=== PATIENT | female | born 1940 | race Caucasian/White ===

== ENCOUNTER 2020-04-21 14:06 | Inpatient (IN) ==
[2020-04-21 15:41] LABS: Hematocrit 38.3 % (37.0-47.0); Hemoglobin 12.2 gm/dL (12.5-16.0); Mean Cell Volume 93.2 fl (78-100); Mean Corpuscular Hemoglobin 29.7 pg (27-31); Mean Corpuscular Hgb Conc 31.9 g/dl (32-36); Mean Platelet Volume 9.4 fl (8-12.5); Platelet Count 162 K/mm3 (150-450); Red Blood Count 4.11 M/mm3 (4.2-5.4); Red Cell Distribution Width 13.9 % (11.5-14.0); White Blood Count 28.2 K/mm3 (4.0-10.5)
[2020-04-21 15:42] LABS: Total Cells Counted 100
[2020-04-21 15:52] LABS: Albumin * 3.4 gm/dl (3.4-5.0); Anion Gap 9.6 mmol/L (6.8-13.8); BUN/Creatinine Ratio 16.8 (9.0-21.6); Bilirubin, Total 0.6 mg/dL (0.0-1.1); Ca. Corrected For Albumin 9.3 mg/dL (8.4-10.2); Calcium * 9.1 mg/dL (7.9-10.9); Carbon Dioxide 29.5 mmol/L (24-32.6); Potassium 4.1 mmol/L (3.4-4.6); Total Protein 7.1 gm/dL (6.2-8.2)
--- NOTE | 2020-04-21 16:02 | ERNOTE ---
Date of Service: 04/21/20 Time Seen by Provider: 04/21/20 14:30 Stated Complaint: sob, fever Presenting Symptoms:: fever Source: patient, RN/MD Exam Limitations: dementia Immunizations: IMMUNIZATION HX Immunizations Up to Date Yes History of Influenza Vaccine Yes Hx Pneumococcal Vaccination Yes Allergies/Adverse Reactions: Allergies azithromycin Adverse Reaction (Verified 04/21/20 14:16) Nausea Home Medications: HOME MEDICATIONS Calcium Carb, Citrate/Vit D3 [Calcium + D3 ER Tablet] 1 ea PO DAILY 04/21/20 [Last Taken Unknown] DULoxetine HCL [Cymbalta] 30 mg PO HS 04/21/20 [Last Taken Unknown] Donepezil HCl [Aricept] 10 mg PO DAILY 04/21/20 [Last Taken Unknown] Duloxetine HCl 60 mg PO DAILY 04/21/20 [Last Taken Unknown] Furosemide [Lasix] 20 mg PO DAILY 04/21/20 [Last Taken Unknown] Gabapentin 400 mg PO TID 04/21/20 [Last Taken Unknown] Levothyroxine Sodium [Levoxyl] 25 mcg PO DAILY 04/21/20 [Last Taken Unknown] Meloxicam [Mobic] 15 mg PO DAILY 04/21/20 [Last Taken Unknown] Memantine HCl [Namenda] 10 mg PO BID 04/21/20 [Last Taken Unknown] Omeprazole 40 mg PO DAILY 04/21/20 [Last Taken Unknown] amLODIPine BESYLATE [Norvasc] 5 mg PO DAILY 04/21/20 [Last Taken Unknown] traZODone HCL [Desyrel] 50 mg PO HS 04/21/20 [Last Taken Unknown] - History of Present Ilness Narrative: pt comes in from home with nurse that does 24 hr care with . Staff states pt was exposed to covid on 04-12, and this week started feeling weak, got covid test yesterday and in middle of night developed 102 F temp. Pt taken 1 G tylenol at 1130 today. Pt very tired, and falling asleep while sitting, which is abnormal. This patient is an 79-year-old female who is here with a cough and fever. The patient has dementia. She has no complaints. The patient is here with a nurse that cares for her . She reportedly has had a cough for a few days and then developed a fever overnight. She has been exposed to Covid. They said that her oxygen saturation was low earlier today. The patient denies chest pain or shortness of breath. Review of Systems - Narrative Narrative: The review of systems is limited due to her dementia. The patient denies any problems. Medical History (Last Reviewed 04/22/20 @ 00:06 by Imer Mckoy MD) Arthropathy of left shoulder Dementia Hypothyroid Incontinence of urine Surgical History: Surgical History (Last Reviewed 04/22/20 @ 00:06 by Imer Mckoy MD) H/O: hysterectomy History of appendectomy History of hip replacement Social History: (Last Reviewed 04/22/20 @ 00:06 by Imer Mckoy MD) Tobacco: Smoking Status: Never smoker Alcohol: alcohol intake: former Substance Use: substance use type: does not use Physical Exam - Physical Exam General Appearance: Present: wd/wn, alert, no apparent distress, other - She is happy and interactive. Head Exam: Present: normal inspection, no evidence of injury Eye Exam: Normal inspection: bilateral Ears, Nose, Throat: Present: normal ENT inspection Neck: Present: normal inspection, supple Respiratory: Present: no respiratory distress, decreased breath sounds, other - There are some questionable crackles at the bases. Cardiovascular/Chest: Present: regular rate, rhythm, no murmur Gastrointestinal/Abdominal: Present: normal bowel sounds, nontender, nondistended, soft, no organomegaly Back Exam: Present: normal inspection Extremity Exam: Present: normal inspection Neurological Exam: Present: alert, normal mood/affect, no motor/sensory deficits - No gross lateralizing deficit. Skin Exam: Present: normal color, warm/dry Progress - Date and Time Seen: Date and Time: 04/22/20 00:10 The patient was not hypoxic here. She was in no respiratory distress. The chest x-ray findings are concerning for covid 19. Her WBC is quite elevated, not consistent with a viral infection. I spoke with Dr. Melchor, who agrees to admit the patient for pneumonia. - Results and Orders Patient's Lab Results:: I have reviewed the patient's lab results. Results and Orders: Laboratory Tests 04/21/20 04/21/20 04/21/20 15:32 15:32 15:32 WBC 28.2 H RBC 4.11 L Hgb 12.2 L Hct 38.3 MCV 93.2 MCH 29.7 MCHC 31.9 L RDW 13.9 Plt Count 162 MPV 9.4 Neutrophils % (Manual) 75 Band Neuts % (Manual) 15 H Lymphocytes % (Manual) 4 L Monocytes % (Manual) 3 Eosinophils % (Manual) 1 Neutrophils # (Manual) 21.2 H Lymphocytes # (Manual) 1.1 L Monocytes # (Manual) 0.8 Eosinophils # (Manual) 0.3 Atypic/Reactive Lymphs 2 Toxic Granulation 1+ Toxic Vacuolation 1+ Platelet Estimate Normal Poikilocytosis Trace ESR D-Dimer Sodium 138 Plasma Sodium 138 Potassium 4.1 Chloride 103 Carbon Dioxide 29.5 Anion Gap 9.6 BUN 26 H Creatinine 1.55 H Est GFR (Non-Af Amer) 33 L BUN/Creatinine Ratio 16.8 Random Glucose 118 H Lactic Acid, Venous Calcium 9.1 Calcium Adj for Albumin 9.3 Total Bilirubin 0.6 AST 16 ALT 18 L Alkaline Phosphatase 48 L C-Reactive Prot, Quant Total Protein 7.1 Albumin 3.4 Procalcitonin 4.47 H SARS-CoV-2 (PCR) 04/21/20 04/21/20 04/21/20 15:32 15:32 15:32 WBC RBC Hgb Hct MCV MCH MCHC RDW Plt Count MPV Neutrophils % (Manual) Band Neuts % (Manual) Lymphocytes % (Manual) Monocytes % (Manual) Eosinophils % (Manual) Neutrophils # (Manual) Lymphocytes # (Manual) Monocytes # (Manual) Eosinophils # (Manual) Atypic/Reactive Lymphs Toxic Granulation Toxic Vacuolation Platelet Estimate Poikilocytosis ESR 35 H D-Dimer Sodium Plasma Sodium Potassium Chloride Carbon Dioxide Anion Gap BUN Creatinine Est GFR (Non-Af Amer) BUN/Creatinine Ratio Random Glucose Lactic Acid, Venous 1.5 Calcium Calcium Adj for Albumin Total Bilirubin AST ALT Alkaline Phosphatase C-Reactive Prot, Quant 14.9 H Total Protein Albumin Procalcitonin SARS-CoV-2 (PCR) 04/21/20 04/21/20 15:32 18:03 WBC RBC Hgb Hct MCV MCH MCHC RDW Plt Count MPV Neutrophils % (Manual) Band Neuts % (Manual) Lymphocytes % (Manual) Monocytes % (Manual) Eosinophils % (Manual) Neutrophils # (Manual) Lymphocytes # (Manual) Monocytes # (Manual) Eosinophils # (Manual) Atypic/Reactive Lymphs Toxic Granulation Toxic Vacuolation Platelet Estimate Poikilocytosis ESR D-Dimer 0.64 H Sodium Plasma Sodium Potassium Chloride Carbon Dioxide Anion Gap BUN Creatinine Est GFR (Non-Af Amer) BUN/Creatinine Ratio Random Glucose Lactic Acid, Venous Calcium Calcium Adj for Albumin Total Bilirubin AST ALT Alkaline Phosphatase C-Reactive Prot, Quant Total Protein Albumin Procalcitonin SARS-CoV-2 (PCR) Not detected - Vital Signs Patient's Vital Signs:: I have reviewed the patient's vital signs. Vital Signs: Vital Signs 04/21/20 14:06 Temperature 36.6 C Pulse Rate 78 Respiratory Rate 18 Blood Pressure 113/57 O2 Sat by Pulse Oximetry 91 L - X-Ray X-Ray #1 X-Ray: chest Interpretation: Reviewed by me X-ray Comments: Chest PA & Lateral *~ Exam Date: 04/21/2020 16:06 Ordering Physician: Deisy Gamboa NP History: Shortness of breath and fatigue. Possible Covid exposure. Technique: PA and lateral views of the chest are evaluated without comparison Findings: Focal airspace consolidation the right lower lobe and to a lesser degree in the left lower lobe. No pleural effusion or pneumothorax. Cardiac silhouette and pulmonary vasculature are normal. The osseous structures demonstrate decreased bony mineralization and degenerative changes of the spine and shoulders. IMPRESSION: MULTIFOCAL PNEUMONIA.. Electronically signed by Sanjeev Nugent D.O.. - Progress/Reassessment Chief Complaint: Upper Respiratory Symptoms Departure Clinical Impression: Pneumonia, Leukocytosis, Dementia - Departure Disposition: Short Term Hospital Inpatient Condition: Fair
[2020-04-21 16:23] LABS: Atypical (Reactive) Lymph 2 % (0-2); Band 15 % (0-2.0); Eosinophil 1 % (0-3); Lymphocyte 4 % (20-51); Monocyte 3 % (0-9); Neutrophil 75 % (42-75); Neutrophil # 21.2 K/mm3 (1.3-6.0)
[2020-04-21 16:24] LABS: Platelet Estimate Normal (NORMAL); Toxic Granulation 1+
[2020-04-21 16:25] LABS: Poikilocytosis Trace
[2020-04-21] MEDS ORDERED: AZITHROMYCIN 250 MG TABLET PO ONE (17:49)
[2020-04-21] MEDS ORDERED: cefTRIAXone SODIUM 1,000 MG/100 ML BAG IV ONE (17:49)
[2020-04-21] MEDS: LORazepam 2 MG/ML DISP.SYRIN IV PRN (18:33)
[2020-04-22] MEDS: LORazepam 2 MG/ML DISP.SYRIN IV PRN (03:07)
--- NOTE | 2020-04-22 08:28 | HP ---
Chief Complaint - Chief Complaint Date of Service: 04/21/20 Time of Service: 19:10 Chief Complaint: Cough, weakness, fever History of Present Illness: pt comes in from home with nurse that does 24 hr care with . Staff states pt was exposed to covid on 04-12, and this week started feeling weak, got covid test yesterday and in middle of night developed 102 F temp. Pt taken 1 G tylenol at 1130 today. Pt very tired, and falling asleep while sitting, which is abnormal. This patient is an 79-year-old female who is here with a cough and fever. The patient has dementia. She has no complaints. The patient is here with a nurse that cares for her . She reportedly has had a cough for a few days and then developed a fever overnight. She has been exposed to Covid. They said that her oxygen saturation was low earlier today. The patient denies chest pain or shortness of breath. Medical History (Last Reviewed 04/22/20 @ 00:06 by Imer Mckoy MD) Arthropathy of left shoulder Dementia Hypothyroid Incontinence of urine Surgical History: Surgical History (Last Reviewed 04/22/20 @ 00:06 by Imer Mckoy MD) H/O: hysterectomy History of appendectomy History of hip replacement Social History: (Last Reviewed 04/22/20 @ 00:06 by Imer Mckoy MD) Tobacco: Smoking Status: Never smoker Alcohol: alcohol intake: former Substance Use: substance use type: does not use Review Of Systems (GEN) - Review of Systems Generalized/Overall Review: Present: Weakness, Chills, Fever EENTM: Present: No Symptoms Reported Respiratory: Present: Cough, Shortness of Breath Cardiac: Present: No Symptoms Reported Abdominal: Present: No Symptoms Reported Genitourinary: Present: No Symptoms Reported Musculoskeletal: Present: No Symptoms Reported Neurological: Present: Weakness Skin: Present: No Symptoms Reported Endocrine: Present: No Symptoms Reported Immunizations: IMMUNIZATION HX Immunizations Up to Date Yes History of Influenza Vaccine Yes Hx Pneumococcal Vaccination Yes Allergies/Adverse Reactions: Allergies Allergy/AdvReac Type Severity Reaction Status Date / Time azithromycin AdvReac Nausea Verified 04/21/20 14:16 Home Medications: HOME MEDICATIONS Calcium Carb, Citrate/Vit D3 [Calcium + D3 ER Tablet] 1 ea PO DAILY 04/21/20 [Last Taken Unknown] DULoxetine HCL [Cymbalta] 30 mg PO HS 04/21/20 [Last Taken Unknown] Donepezil HCl [Aricept] 10 mg PO DAILY 04/21/20 [Last Taken Unknown] Duloxetine HCl 60 mg PO DAILY 04/21/20 [Last Taken Unknown] Furosemide [Lasix] 20 mg PO DAILY 04/21/20 [Last Taken Unknown] Gabapentin 400 mg PO TID 04/21/20 [Last Taken Unknown] Levothyroxine Sodium [Levoxyl] 25 mcg PO DAILY 04/21/20 [Last Taken Unknown] Meloxicam [Mobic] 15 mg PO DAILY 04/21/20 [Last Taken Unknown] Memantine HCl [Namenda] 10 mg PO BID 04/21/20 [Last Taken Unknown] Omeprazole 40 mg PO DAILY 04/21/20 [Last Taken Unknown] amLODIPine BESYLATE [Norvasc] 5 mg PO DAILY 04/21/20 [Last Taken Unknown] traZODone HCL [Desyrel] 50 mg PO HS 04/21/20 [Last Taken Unknown] Exam - Exam Vital Signs: Vital Signs - Last Taken Temp 37.1 C 04/22/20 07:01 Pulse 87 04/22/20 07:01 Resp 19 04/22/20 07:01 BP 157/70 H 04/22/20 07:01 Pulse Ox 92 L 04/22/20 02:10 Constitutional: Present: Well developed, Well nourished, Mild distress, Elderly, Obese ENT Exam: Present: normal ENT inspection, hearing grossly normal, pharynx normal, TMs normal Eye Exam: bilateral eye: normal inspection, PERRL, EOMI Neck: Present: non-tender, supple, limited range of motion Back Exam: Present: normal inspection, no CVA tenderness, no vertebral tenderness Respiratory: Present: decreased breath sounds, rhonchi, wheezing Cardiovascular/Chest: Present: normal peripheral pulses, no chest tenderness, no edema, no gallop, no JVD, no murmur, no rub, tachycardia Peripheral Pulses: carotid (R): 2+, carotid (L): 2+, radial (R): 2+, radial (L): 2+ Abdomen: Present: Normal bowel sounds, soft, nontender, nondistended, no rebound tenderness, no hepatospenomegaly, no masses, obese /Rectal: Present: Exam deferred Extremity: Present: normal range of motion, non-tender, normal inspection, no pedal edema, no calf tenderness, normal capillary refill Skin Exam: Present: normal color, warm/dry, no cyanosis Lymphatic: Present: no adenopathy Neurologic: Present: motor weakness Appearance: Present: appropriate appearance, neat, impaired insight, impaired recent memory, impaired remote memory Eye contact: Present: other - Unable to cooperate due to advanced dementia Thoughts: Present: incoherent Diagnostic Studies: Abnormal Lab Results 04/21/20 04/21/20 04/21/20 Range/Units 15:32 15:32 15:32 WBC 28.2 H (4.0-10.5) K/mm3 RBC 4.11 L (4.2-5.4) M/mm3 Hgb 12.2 L (12.5-16.0) gm/dL MCHC 31.9 L (32-36) g/dl Band Neuts % (Manual) 15 H (0-2.0) % Lymphocytes % (Manual) 4 L (20-51) % Neutrophils # (Manual) 21.2 H (1.3-6.0) K/mm3 Lymphocytes # (Manual) 1.1 L (1.5-3.5) k/mm3 ESR (0-15) mm/hr D-Dimer (0.19-0.49) ug/mL BUN 26 H (3-23) mg/dL Creatinine 1.55 H (0.4-1.4) mg/dL Est GFR (Non-Af Amer) 33 L (60-130) mL/min Random Glucose 118 H (70-110) mg/dL ALT 18 L (19-67) U/L Alkaline Phosphatase 48 L (50-170) U/L C-Reactive Prot, Quant (0.0-0.9) mg/dL Procalcitonin 4.47 H (0.05-0.50) ng/mL 04/21/20 04/21/20 04/21/20 Range/Units 15:32 15:32 15:32 WBC (4.0-10.5) K/mm3 RBC (4.2-5.4) M/mm3 Hgb (12.5-16.0) gm/dL MCHC (32-36) g/dl Band Neuts % (Manual) (0-2.0) % Lymphocytes % (Manual) (20-51) % Neutrophils # (Manual) (1.3-6.0) K/mm3 Lymphocytes # (Manual) (1.5-3.5) k/mm3 ESR 35 H (0-15) mm/hr D-Dimer 0.64 H (0.19-0.49) ug/mL BUN (3-23) mg/dL Creatinine (0.4-1.4) mg/dL Est GFR (Non-Af Amer) (60-130) mL/min Random Glucose (70-110) mg/dL ALT (19-67) U/L Alkaline Phosphatase (50-170) U/L C-Reactive Prot, Quant 14.9 H (0.0-0.9) mg/dL Procalcitonin (0.05-0.50) ng/mL Laboratory Results WBC 28.2 K/mm3 (4.0-10.5) H 04/21/20 15:32 RBC 4.11 M/mm3 (4.2-5.4) L 04/21/20 15:32 Hgb 12.2 gm/dL (12.5-16.0) L 04/21/20 15:32 Hct 38.3 % (37.0-47.0) 04/21/20 15:32 MCV 93.2 fl (78-100) 04/21/20 15:32 MCH 29.7 pg (27-31) 04/21/20 15:32 MCHC 31.9 g/dl (32-36) L 04/21/20 15:32 RDW 13.9 % (11.5-14.0) 04/21/20 15:32 Plt Count 162 K/mm3 (150-450) 04/21/20 15:32 MPV 9.4 fl (8-12.5) 04/21/20 15:32 Neutrophils % (Manual) 75 % (42-75) 04/21/20 15:32 Band Neuts % (Manual) 15 % (0-2.0) H 04/21/20 15:32 Lymphocytes % (Manual) 4 % (20-51) L 04/21/20 15:32 Monocytes % (Manual) 3 % (0-9) 04/21/20 15:32 Eosinophils % (Manual) 1 % (0-3) 04/21/20 15:32 Neutrophils # (Manual) 21.2 K/mm3 (1.3-6.0) H 04/21/20 15:32 Lymphocytes # (Manual) 1.1 k/mm3 (1.5-3.5) L 04/21/20 15:32 Monocytes # (Manual) 0.8 k/mm3 (0.0-1.0) 04/21/20 15:32 Eosinophils # (Manual) 0.3 k/mm3 (0.0-0.7) 04/21/20 15:32 Atypic/Reactive Lymphs 2 % (0-2) 04/21/20 15:32 Toxic Granulation 1+ 04/21/20 15:32 Toxic Vacuolation 1+ 04/21/20 15:32 Platelet Estimate Normal (NORMAL) 04/21/20 15:32 Poikilocytosis Trace 04/21/20 15:32 ESR 35 mm/hr (0-15) H 04/21/20 15:32 D-Dimer 0.64 ug/mL (0.19-0.49) H 04/21/20 15:32 Sodium 138 mmol/L (132-142) 04/21/20 15:32 Plasma Sodium 138 mmol/L (130-142) 04/21/20 15:32 Potassium 4.1 mmol/L (3.4-4.6) 04/21/20 15:32 Chloride 103 mmol/L (97-106) 04/21/20 15:32 Carbon Dioxide 29.5 mmol/L (24-32.6) 04/21/20 15:32 Anion Gap 9.6 mmol/L (6.8-13.8) 04/21/20 15:32 BUN 26 mg/dL (3-23) H 04/21/20 15:32 Creatinine 1.55 mg/dL (0.4-1.4) H 04/21/20 15:32 Est GFR (Non-Af Amer) 33 mL/min (60-130) L 04/21/20 15:32 BUN/Creatinine Ratio 16.8 (9.0-21.6) 04/21/20 15:32 Random Glucose 118 mg/dL (70-110) H 04/21/20 15:32 Lactic Acid, Venous 1.5 mmol/L (0.4-2.0) 04/21/20 15:32 Calcium 9.1 mg/dL (7.9-10.9) 04/21/20 15:32 Calcium Adj for Albumin 9.3 mg/dL (8.4-10.2) 04/21/20 15:32 Total Bilirubin 0.6 mg/dL (0.0-1.1) 04/21/20 15:32 AST 16 U/L (0-48) 04/21/20 15:32 ALT 18 U/L (19-67) L 04/21/20 15:32 Alkaline Phosphatase 48 U/L (50-170) L 04/21/20 15:32 C-Reactive Prot, Quant 14.9 mg/dL (0.0-0.9) H 04/21/20 15:32 Total Protein 7.1 gm/dL (6.2-8.2) 04/21/20 15:32 Albumin 3.4 gm/dl (3.4-5.0) 04/21/20 15:32 Procalcitonin 4.47 ng/mL (0.05-0.50) H 04/21/20 15:32 SARS-CoV-2 (PCR) Not detected (NotDetected) 04/21/20 18:03 Assessment/Plan - Narrative Narrative: Debbie had a marked leukocytosis on admission of 22,000. Chest x-ray is consistent with pneumonia and she is Covid negative. She will be treated with antibiotics and respiratory therapy. I will monitor her lab daily. Blood cultures are pending. I reconciled her medicines and continued some of them. - Assessment/Plan (1) Pneumonia Problem: Acute Qualifiers: Pneumonia type: due to unspecified organism Laterality: bilateral Lung location: upper lobe of lung Qualified Code(s): J18.9 - Pneumonia, unspecified organism (2) Leukocytosis Problem: Acute Qualifiers: Leukocytosis type: bandemia Qualified Code(s): D72.825 - Bandemia (3) Dementia Problem: Chronic Qualifiers: Dementia type: Alzheimer's disease Alzheimer's disease onset: late-onset Dementia behavioral disturbance: without behavioral disturbance Qualified Code(s): G30.1 - Alzheimer's disease with late onset; F02.80 - Dementia in other diseases classified elsewhere without behavioral disturbance
[2020-04-22] MEDS ORDERED: ACETAMINOPHEN 500 MG TABLET PO PRN (08:41)
--- NOTE | 2020-04-22 08:41 | PN ---
Subjective - Date and Time Seen Date: 04/22/20 Time: 07:20 Subjective Narrative: Debbie has rested fairly well through the night. She is receiving IV antibiotics and I will start respiratory therapy this morning. She is very demented and cannot follow commands. Vital signs have been stable and she has not been in Any respiratory distress. She has a 28,000 white count with 15% bandemia. The D-dimer is barely elevated at 0.67 and her sed rate is 35. CRP is 14.7 and the pro-Gregor is elevated at 4.7. Objective - Review of Systems Generalized/Overall Review: Reports: No Symptoms Reported, Weakness EENTM: Reports: No Symptoms Reported Respiratory: Reports: Cough, Shortness of Breath Cardiac: Reports: No Symptoms Reported Abdominal: Reports: No Symptoms Reported Genitourinary Symptoms: Reports: Incontinent Musculoskeletal Complaints: Reports: No Symptoms Reported Neurological: Reports: Weakness Endocrine: Reports: No Symptoms Reported - Vitals Vitals: Last Vital Signs Temp 37.1 C 04/22/20 07:01 Pulse 87 04/22/20 07:01 Resp 19 04/22/20 07:01 BP 157/70 H 04/22/20 07:01 Pulse Ox 92 L 04/22/20 02:10 - Abnormal Lab Findings Abnormal Lab Findings: Abnormal Lab Results 04/21/20 04/21/20 04/21/20 Range/Units 15:32 15:32 15:32 WBC 28.2 H (4.0-10.5) K/mm3 RBC 4.11 L (4.2-5.4) M/mm3 Hgb 12.2 L (12.5-16.0) gm/dL MCHC 31.9 L (32-36) g/dl Band Neuts % (Manual) 15 H (0-2.0) % Lymphocytes % (Manual) 4 L (20-51) % Neutrophils # (Manual) 21.2 H (1.3-6.0) K/mm3 Lymphocytes # (Manual) 1.1 L (1.5-3.5) k/mm3 ESR (0-15) mm/hr D-Dimer (0.19-0.49) ug/mL BUN 26 H (3-23) mg/dL Creatinine 1.55 H (0.4-1.4) mg/dL Est GFR (Non-Af Amer) 33 L (60-130) mL/min Random Glucose 118 H (70-110) mg/dL ALT 18 L (19-67) U/L Alkaline Phosphatase 48 L (50-170) U/L C-Reactive Prot, Quant (0.0-0.9) mg/dL Procalcitonin 4.47 H (0.05-0.50) ng/mL 04/21/20 04/21/20 04/21/20 Range/Units 15:32 15:32 15:32 WBC (4.0-10.5) K/mm3 RBC (4.2-5.4) M/mm3 Hgb (12.5-16.0) gm/dL MCHC (32-36) g/dl Band Neuts % (Manual) (0-2.0) % Lymphocytes % (Manual) (20-51) % Neutrophils # (Manual) (1.3-6.0) K/mm3 Lymphocytes # (Manual) (1.5-3.5) k/mm3 ESR 35 H (0-15) mm/hr D-Dimer 0.64 H (0.19-0.49) ug/mL BUN (3-23) mg/dL Creatinine (0.4-1.4) mg/dL Est GFR (Non-Af Amer) (60-130) mL/min Random Glucose (70-110) mg/dL ALT (19-67) U/L Alkaline Phosphatase (50-170) U/L C-Reactive Prot, Quant 14.9 H (0.0-0.9) mg/dL Procalcitonin (0.05-0.50) ng/mL - EKG/Xray Findings EKG read: Reviewed by me XRAY: chest Interpretation: Reviewed by me - Exam Constitutional: Present: Alert, Oriented x3, Cooperative, Well developed, Well nourished, No distress ENT Exam: Present: normal ENT inspection, hearing grossly normal, pharynx normal, TMs normal Neck: Present: non-tender, full range of motion, supple, normal inspection Breasts: Present: Exam deferred Respiratory: Present: chest non-tender, rhonchi, wheezing Cardiovascular/Chest: Present: normal peripheral pulses, regular rate, rhythm, no chest tenderness, no edema, no gallop, no JVD, no murmur, no rub Abdomen: Present: Normal bowel sounds, soft, nontender, nondistended, no rebound tenderness, no hepatospenomegaly, no masses /Rectal: Present: Exam deferred Extremity: Present: normal range of motion, non-tender, normal inspection, no pedal edema, no calf tenderness, normal capillary refill Skin Exam: Present: normal color, warm/dry, no cyanosis Lymphatic: Present: no adenopathy Neurologic: Present: management specialist II-XII nml as tested Appearance: Present: appropriate appearance, appropriate insight, neat, no memory impairment Eye contact: Present: cooperative, good eye contact, normal speech Thoughts: Present: normal thought pattern, no apparent hallucination Assessment/Plan Plan Narrative: 1. Continue IV antibiotics 2. Begin respiratory therapy treatment 3. Continue home meds - Problems/Diagnosis (1) Pneumonia Problem: Acute Qualifiers: Pneumonia type: due to unspecified organism Laterality: bilateral Lung location: upper lobe of lung Qualified Code(s): J18.9 - Pneumonia, unspecified organism (2) Leukocytosis Problem: Acute Qualifiers: Leukocytosis type: bandemia Qualified Code(s): D72.825 - Bandemia (3) Dementia Problem: Chronic Qualifiers: Dementia type: Alzheimer's disease Alzheimer's disease onset: late-onset Dementia behavioral disturbance: without behavioral disturbance Qualified Code(s): G30.1 - Alzheimer's disease with late onset; F02.80 - Dementia in other diseases classified elsewhere without behavioral disturbance (4) Stage III chronic kidney disease Problem: Acute
[2020-04-22] MEDS ORDERED: FLU VACC QS2020-21(6MOS UP)/PF 60 MCG/0.5 ML SYRINGE IM ONE (09:00)
[2020-04-22] MEDS ORDERED: LIDOCAINE HCL 50 ML VIAL IM ONE (09:32)
--- NOTE | 2020-04-22 09:41 | PN ---
Omayra Note - Interim Date: 04/22/20 Time: 09:39 Narrative: 04/22/20 09:39 This patient had a Covid test done as an outpatient a few days before presenting to the hospital the results of which were not available at the time of her visit in the ER and subsequent admission. We did a COVID-19 nasal test just prior to admission which was negative. Today the outpatient Covid test from the [facility] is reported out as positive. Therefore, she will be removed from her current patient care room in 111 and moved to [facility].
[2020-04-22] MEDS: ALBUTEROL SULFATE 2.5 MG/0.5 ML VIAL.NEB IH SCH ×4 (09:48→17:50)
[2020-04-22] MEDS: LEVOTHYROXINE SODIUM 25 MCG TABLET PO SCH (11:36)
[2020-04-22] MEDS: MELOXICAM 15 MG TABLET PO SCH (11:36)
[2020-04-22] MEDS: MEMANTINE HCL 10 MG TABLET PO SCH ×2 (11:36→21:50)
[2020-04-22] MEDS: DONEPEZIL HCL 10 MG TABLET PO SCH (11:36)
[2020-04-22] MEDS: amLODIPine BESYLATE 5 MG TABLET PO SCH (11:36)
[2020-04-22] MEDS: DULoxetine HCL 30 MG CAPSULE.SA PO SCH ×2 (11:37→21:50)
[2020-04-22] MEDS: GABAPENTIN 400 MG CAPSULE PO SCH ×3 (11:37→17:19)
[2020-04-22] MEDS: traZODone HCL 50 MG TABLET PO SCH (21:50)
[2020-04-23] MEDS: ALBUTEROL SULFATE 2.5 MG/0.5 ML VIAL.NEB IH SCH ×2 (06:05→10:45)
[2020-04-23] MEDS: PANTOPRAZOLE SODIUM 40 MG TABLET.EC PO SCH (07:21)
[2020-04-23] MEDS: LEVOTHYROXINE SODIUM 25 MCG TABLET PO SCH (07:22)
[2020-04-23] MEDS: AZITHROMYCIN 250 MG TABLET PO SCH ×2 (08:22→08:32)
[2020-04-23] MEDS: DULoxetine HCL 30 MG CAPSULE.SA PO SCH ×2 (08:22→20:48)
[2020-04-23] MEDS: DONEPEZIL HCL 10 MG TABLET PO SCH (08:22)
[2020-04-23] MEDS: MEMANTINE HCL 10 MG TABLET PO SCH ×2 (08:23→20:48)
[2020-04-23] MEDS: GABAPENTIN 400 MG CAPSULE PO SCH ×3 (08:23→16:12)
[2020-04-23] MEDS: MELOXICAM 15 MG TABLET PO SCH (08:23)
[2020-04-23] MEDS: amLODIPine BESYLATE 5 MG TABLET PO SCH (08:23)
[2020-04-23 13:34] LABS: Hemoglobin 10.7 gm/dL (12.5-16.0); Mean Cell Volume 94.2 fl (78-100); Mean Corpuscular Hemoglobin 29.6 pg (27-31); Mean Corpuscular Hgb Conc 31.5 g/dl (32-36); Mean Platelet Volume 8.8 fl (8-12.5); Neutrophil # 7.7 K/mm3 (1.3-6.0); Neutrophil % 71.6 % (42-75.0); Platelet Count 162 K/mm3 (150-450); Red Blood Count 3.61 M/mm3 (4.2-5.4); Red Cell Distribution Width 13.7 % (11.5-14.0); White Blood Count 10.7 K/mm3 (4.0-10.5)
[2020-04-23 13:47] LABS: Anion Gap 13.6 mmol/L (6.8-13.8); Bilirubin, Total 0.6 mg/dL (0.0-1.1); Ca. Corrected For Albumin 9.7 mg/dL (8.4-10.2); Calcium * 9.2 mg/dL (7.9-10.9); Carbon Dioxide 25.2 mmol/L (24-32.6); Potassium 3.8 mmol/L (3.4-4.6); Total Protein 6.9 gm/dL (6.2-8.2)
--- NOTE | 2020-04-23 13:54 | PN ---
Subjective - Date and Time Seen Date: 04/23/20 Time: 13:00 Subjective Narrative: Weakness, cough, shortness of breath all seem to have improved. She is now on room air satting in the mid to upper 90s. She is eating well. She is much more alert and conversant today. Her lab work also shows improvement. White count is dropped from 27,000-10,800 with no bandemia today. She remains a high fall risk. She has been kept in SCU because of that primarily. There is some improvement in renal status with an improving creatinine and EGFR. Objective - Review of Systems Generalized/Overall Review: Reports: Weakness EENTM: Reports: No Symptoms Reported Respiratory: Reports: Cough, Shortness of Breath Cardiac: Reports: No Symptoms Reported Abdominal: Reports: No Symptoms Reported Genitourinary Symptoms: Reports: No Symptoms Reported Musculoskeletal Complaints: Reports: No Symptoms Reported Neurological: Reports: No Symptoms Reported Skin: Reports: No Symptoms Reported Endocrine: Reports: No Symptoms Reported Misc: All systems neg except as marked - Vitals Vitals: Last Vital Signs Temp 37.2 C 04/23/20 10:42 Pulse 80 04/23/20 10:55 Resp 16 04/23/20 10:55 BP 103/53 04/23/20 10:42 Pulse Ox 99 04/23/20 10:45 - Abnormal Lab Findings Abnormal Lab Findings: Abnormal Lab Results 04/23/20 Range/Units 13:25 WBC 10.7 H D (4.0-10.5) K/mm3 RBC 3.61 L (4.2-5.4) M/mm3 Hgb 10.7 L (12.5-16.0) gm/dL Hct 34.0 L (37.0-47.0) % MCHC 31.5 L (32-36) g/dl Immature Gran % (Auto) 0.90 H (0.001-0.429) % Immature Gran # (Auto) 0.10 H (0.000-0.0310) K/mm3 Lymphocytes % 17.5 L (20-51) % Neutrophils # 7.7 H (1.3-6.0) K/mm3 - EKG/Xray Findings XRAY: chest Interpretation: Reviewed by me - Exam Constitutional: Present: Alert, Oriented x3, Cooperative, Well developed, Well nourished, Elderly, Obese ENT Exam: Present: normal ENT inspection, hearing grossly normal, pharynx normal Neck: Present: non-tender, limited range of motion Breasts: Present: Exam deferred Respiratory: Present: chest non-tender, lungs clear, normal breath sounds, no respiratory distress, no accessory muscle use Cardiovascular/Chest: Present: normal peripheral pulses, regular rate, rhythm, no chest tenderness, no edema, no gallop, no JVD, no murmur, no rub Abdomen: Present: Normal bowel sounds, soft, nontender, nondistended, no rebound tenderness, no hepatospenomegaly, no masses, obese /Rectal: Present: Exam deferred Extremity: Present: normal range of motion, non-tender, normal inspection, no pedal edema, no calf tenderness, normal capillary refill Skin Exam: Present: normal color, warm/dry, no cyanosis Neurologic: Present: remote sensing program manager II-XII nml as tested, other - Confusion Appearance: Present: appropriate appearance, appropriate insight, neat Eye contact: Present: cooperative, good eye contact, normal speech Thoughts: Present: normal thought pattern, no apparent hallucination Assessment/Plan Plan Narrative: Continue current therapy through the weekend. She is now on room air not requiring oxygen at all. I expect further continuance and improvement in her renal status and leukocytosis. - Problems/Diagnosis (1) Pneumonia Problem: Acute Qualifiers: Pneumonia type: due to unspecified organism Laterality: bilateral Lung location: upper lobe of lung Qualified Code(s): J18.9 - Pneumonia, unspecified organism (2) COVID-19 virus detected Problem: Acute (3) Leukocytosis Problem: Acute Qualifiers: Leukocytosis type: bandemia Qualified Code(s): D72.825 - Bandemia (4) Dementia Problem: Chronic Qualifiers: Dementia type: Alzheimer's disease Alzheimer's disease onset: late-onset Dementia behavioral disturbance: without behavioral disturbance Qualified Code(s): G30.1 - Alzheimer's disease with late onset; F02.80 - Dementia in other diseases classified elsewhere without behavioral disturbance (5) Stage III chronic kidney disease Problem: Acute
[2020-04-23] MEDS ORDERED: ALBUTEROL SULFATE 2.5 MG/0.5 ML VIAL.NEB IH PRN (14:47)
[2020-04-23] MEDS: traZODone HCL 50 MG TABLET PO SCH (20:48)
[2020-04-24] MEDS: PANTOPRAZOLE SODIUM 40 MG TABLET.EC PO SCH (06:44)
[2020-04-24 06:57] LABS: Hematocrit 36.8 % (37.0-47.0); Hemoglobin 11.6 gm/dL (12.5-16.0); Mean Cell Volume 94.6 fl (78-100); Mean Corpuscular Hemoglobin 29.8 pg (27-31); Mean Corpuscular Hgb Conc 31.5 g/dl (32-36); Mean Platelet Volume 8.9 fl (8-12.5); Neutrophil % 67.6 % (42-75.0); Platelet Count 172 K/mm3 (150-450); Red Blood Count 3.89 M/mm3 (4.2-5.4); Red Cell Distribution Width 13.8 % (11.5-14.0); White Blood Count 8.8 K/mm3 (4.0-10.5)
[2020-04-24] MEDS: LEVOTHYROXINE SODIUM 25 MCG TABLET PO SCH (06:57)
[2020-04-24 07:11] LABS: Albumin * 3.2 gm/dl (3.4-5.0); Anion Gap 10.9 mmol/L (6.8-13.8); BUN/Creatinine Ratio 13.6 (9.0-21.6); Bilirubin, Total 0.7 mg/dL (0.0-1.1); Ca. Corrected For Albumin 10.2 mg/dL (8.4-10.2); Calcium * 9.9 mg/dL (7.9-10.9); Carbon Dioxide 28.3 mmol/L (24-32.6); Potassium 4.2 mmol/L (3.4-4.6); Total Protein 7.5 gm/dL (6.2-8.2)
[2020-04-24] MEDS: GABAPENTIN 400 MG CAPSULE PO SCH ×3 (08:26→20:37)
[2020-04-24] MEDS: MELOXICAM 15 MG TABLET PO SCH (08:26)
[2020-04-24] MEDS: AZITHROMYCIN 250 MG TABLET PO SCH (08:26)
[2020-04-24] MEDS: MEMANTINE HCL 10 MG TABLET PO SCH ×2 (08:27→20:38)
[2020-04-24] MEDS: DONEPEZIL HCL 10 MG TABLET PO SCH (08:27)
[2020-04-24] MEDS: DULoxetine HCL 30 MG CAPSULE.SA PO SCH ×2 (08:27→20:37)
[2020-04-24] MEDS: amLODIPine BESYLATE 5 MG TABLET PO SCH (08:28)
--- NOTE | 2020-04-24 13:06 | PN ---
Subjective - Date and Time Seen Date: 04/24/20 Time: 11:30 Subjective Narrative: Debbie has had a uneventful night and rested well. She is feeling well and in good spirits this morning. She is conversational although pleasantly confused. She is in no distress. Nursing has no concerns. Vital signs: Temperature 36.6, pulse is 79, BP is 131/56, respirations are 16 and unlabored, O2 sat is 100% on room air Lab: White count is now normal at 8800 and hemoglobin is 11.6 g. Chemistries: EGFR is up to 44. It was 33 on admission and 41 yesterday. The BUN has improved to 17 and creatinine is 1.25. Imaging: Chest x-ray shows interval improvement in bilateral heterogenous opacities. Objective - Review of Systems Generalized/Overall Review: Reports: No Symptoms Reported EENTM: Reports: No Symptoms Reported Respiratory: Reports: Cough - Now rare., Shortness of Breath - Only with exertion. Cardiac: Reports: No Symptoms Reported Abdominal: Reports: No Symptoms Reported Genitourinary Symptoms: Reports: No Symptoms Reported Musculoskeletal Complaints: Reports: No Symptoms Reported Neurological: Reports: No Symptoms Reported, Other - Mental confusion secondary to dementia Skin: Reports: No Symptoms Reported Endocrine: Reports: No Symptoms Reported Misc: All systems neg except as marked - Vitals Vitals: Last Vital Signs Temp 36.6 C 04/24/20 10:24 Pulse 79 04/24/20 10:24 Resp 16 04/24/20 10:24 BP 131/56 04/24/20 10:24 Pulse Ox 100 04/24/20 10:24 - Abnormal Lab Findings Abnormal Lab Findings: Abnormal Lab Results 04/23/20 04/23/20 04/24/20 Range/Units 13:25 13:25 06:50 WBC 10.7 H D (4.0-10.5) K/mm3 RBC 3.61 L 3.89 L (4.2-5.4) M/mm3 Hgb 10.7 L 11.6 L (12.5-16.0) gm/dL Hct 34.0 L 36.8 L (37.0-47.0) % MCHC 31.5 L 31.5 L (32-36) g/dl Immature Gran % (Auto) 0.90 H 1.00 H (0.001-0.429) % Immature Gran # (Auto) 0.10 H 0.09 H (0.000-0.0310) K/mm3 Lymphocytes % 17.5 L 19.3 L (20-51) % Eosinophils % 3.6 H (0.0-3.0) % Neutrophils # 7.7 H (1.3-6.0) K/mm3 Est GFR (Non-Af Amer) 41 L D (60-130) mL/min Random Glucose 136 H (70-110) mg/dL ALT 16 L (19-67) U/L Albumin 3.0 L (3.4-5.0) gm/dl 04/24/20 Range/Units 06:50 WBC (4.0-10.5) K/mm3 RBC (4.2-5.4) M/mm3 Hgb (12.5-16.0) gm/dL Hct (37.0-47.0) % MCHC (32-36) g/dl Immature Gran % (Auto) (0.001-0.429) % Immature Gran # (Auto) (0.000-0.0310) K/mm3 Lymphocytes % (20-51) % Eosinophils % (0.0-3.0) % Neutrophils # (1.3-6.0) K/mm3 Est GFR (Non-Af Amer) 44 L (60-130) mL/min Random Glucose 130 H (70-110) mg/dL ALT 17 L (19-67) U/L Albumin 3.2 L (3.4-5.0) gm/dl - EKG/Xray Findings XRAY: chest Interpretation: Reviewed by me - Exam Constitutional: Present: Alert, Oriented x3, Cooperative, Well developed, Well nourished, No distress, Elderly, Obese ENT Exam: Present: normal ENT inspection, hearing grossly normal, pharynx normal, TMs normal Neck: Present: non-tender, limited range of motion Breasts: Present: Exam deferred Respiratory: Present: chest non-tender, lungs clear Cardiovascular/Chest: Present: normal peripheral pulses, regular rate, rhythm, no chest tenderness, no edema, no gallop, no JVD, no murmur, no rub Abdomen: Present: Normal bowel sounds, soft, nontender, nondistended, no rebound tenderness, no hepatospenomegaly, no masses, obese /Rectal: Present: Exam deferred Extremity: Present: normal range of motion, non-tender, normal inspection, no pedal edema, no calf tenderness, normal capillary refill Skin Exam: Present: normal color, warm/dry, no cyanosis Lymphatic: Present: no adenopathy Neurologic: Present: probate clerk II-XII nml as tested Appearance: Present: appropriate appearance, appropriate insight, neat, no memory impairment Eye contact: Present: cooperative, good eye contact, normal speech Thoughts: Present: no apparent hallucination, other - Very pleasant but confused Assessment/Plan - Problems/Diagnosis (1) Pneumonia Problem: Acute Qualifiers: Pneumonia type: due to unspecified organism Laterality: bilateral Lung location: upper lobe of lung Qualified Code(s): J18.9 - Pneumonia, unspecified organism (2) COVID-19 virus detected Problem: Acute (3) Leukocytosis Problem: Acute Qualifiers: Leukocytosis type: bandemia Qualified Code(s): D72.825 - Bandemia (4) Dementia Problem: Chronic Qualifiers: Dementia type: Alzheimer's disease Alzheimer's disease onset: late-onset Dementia behavioral disturbance: without behavioral disturbance Qualified Code(s): G30.1 - Alzheimer's disease with late onset; F02.80 - Dementia in other diseases classified elsewhere without behavioral disturbance (5) Stage III chronic kidney disease Problem: Acute
[2020-04-24] MEDS: traZODone HCL 50 MG TABLET PO SCH (20:37)
[2020-04-25] MEDS: LEVOTHYROXINE SODIUM 25 MCG TABLET PO SCH (08:05)
[2020-04-25] MEDS: PANTOPRAZOLE SODIUM 40 MG TABLET.EC PO SCH (08:05)
--- NOTE | 2020-04-25 08:54 | DS ---
(1) Pneumonia Problem: Acute Qualifiers: Pneumonia type: due to unspecified organism Laterality: bilateral Lung location: upper lobe of lung Qualified Code(s): J18.9 - Pneumonia, unspecified organism (2) COVID-19 virus detected Problem: Acute (3) Leukocytosis Problem: Resolved Qualifiers: Leukocytosis type: bandemia Qualified Code(s): D72.825 - Bandemia (4) Dementia Problem: Chronic Qualifiers: Dementia type: Alzheimer's disease Alzheimer's disease onset: late-onset Dementia behavioral disturbance: without behavioral disturbance Qualified Code(s): G30.1 - Alzheimer's disease with late onset; F02.80 - Dementia in other diseases classified elsewhere without behavioral disturbance (5) Stage III chronic kidney disease Problem: Acute Qualifiers: Chronic kidney disease stage 3 subtype: stage 3b (GFR 30-44) Qualified Code(s): N18.32 - Chronic kidney disease, stage 3b Date of Discharge:: 04/25/20 Hospital Course: Debbie Recinos is an 79-year-old female patient admitted through ER with pneumonia. She was Covid tested prior to admission and it was nondetected. However 2 days earlier she had had an outpatient Covid test done and the results were not yet available at the time of admission. The next day after admission the results became available and was reported as detected. She had initially been admitted to general medical floor but then was moved to SCU with the Covid diagnosis. Her pro-Gregor was elevated. Her D-dimer was mildly elevated. Her inflammation markers were elevated but not extremely high like most Covid patients are with sed rate of 35. She had leukocytosis with bandemia on admission with a white count of 27,000. This dropped to 10,800 the next day and yesterday was down to normal at 8000. Continues to have a mild bandemia at 2 to 4%. She has stage IIIb Chronic kidney disease. Her last EGFR was 39. She made excellent improvement with antibiotic therapy and respiratory therapy. She has been pleasantly confused her entire stay which is her baseline. She lives at home with her . She will be returned there with home health. Her disposition is significantly improved. Prognosis is good. [id number] for home health: Debbie Recinos is confined to home due to impaired mobility and dementia. She is recovering from pneumonia and was COVID-19 detected. The need for alf is monitoring of breath sounds, monitoring vital signs, monitoring medications. The need for physical therapy is for limb strengthening and balance training and to decrease her fall risk. The reason for occupational therapy is to improve her ADLs. She does not need speech therapy. The need for home health care skilled services is directly related to the time spent [id number] with the person. Procedures Performed: none Results and Findings: Pending Mircobiology Results 04/21/20 18:01 Blood Blood Culture - Preliminary NO GROWTH AFTER 48 HOURS 04/21/20 17:58 Blood Blood Culture - Preliminary NO GROWTH AFTER 48 HOURS Lab Pending Results 04/21/20 15:32: WBC 28.2 H, RBC 4.11 L, Hgb 12.2 L, Hct 38.3, MCV 93.2, MCH 29.7, MCHC 31.9 L, RDW 13.9, Plt Count 162, MPV 9.4, Neutrophils % (Manual) 75, Band Neuts % (Manual) 15 H, Lymphocytes % (Manual) 4 L, Monocytes % (Manual) 3, Eosinophils % (Manual) 1, Neutrophils # (Manual) 21.2 H, Lymphocytes # (Manual) 1.1 L, Monocytes # (Manual) 0.8, Eosinophils # (Manual) 0.3, Atypic/Reactive Lymphs 2, Toxic Granulation 1+, Toxic Vacuolation 1+, Platelet Estimate Normal, Poikilocytosis Trace 04/21/20 15:32: Sodium 138, Plasma Sodium 138, Potassium 4.1, Chloride 103, Carbon Dioxide 29.5, Anion Gap 9.6, BUN 26 H, Creatinine 1.55 H, Est GFR (Non-Af Amer) 33 L, BUN/Creatinine Ratio 16.8, Random Glucose 118 H, Calcium 9.1, Calcium Adj for Albumin 9.3, Total Bilirubin 0.6, AST 16, ALT 18 L, Alkaline Phosphatase 48 L, Total Protein 7.1, Albumin 3.4 04/21/20 15:32: Procalcitonin 4.47 H 04/21/20 15:32: C-Reactive Prot, Quant 14.9 H 04/21/20 15:32: Lactic Acid, Venous 1.5 04/21/20 15:32: ESR 35 H 04/21/20 15:32: D-Dimer 0.64 H 04/21/20 18:03: SARS-CoV-2 (PCR) Not detected 04/23/20 13:25: WBC 10.7 H D, RBC 3.61 L, Hgb 10.7 L, Hct 34.0 L, MCV 94.2, MCH 29.6, MCHC 31.5 L, RDW 13.7, Plt Count 162, MPV 8.8, Immature Gran % (Auto) 0.90 H, Immature Gran # (Auto) 0.10 H, Neutrophils % 71.6, Lymphocytes % 17.5 L, Monocytes % 7.4, Eosinophils % 2.1, Basophils % 0.5, Nucleated RBC % 0.0, Neutrophils # 7.7 H, Lymphocytes # 1.87, Monocytes # 0.8, Eosinophils # 0.2, Absolute Basophils 0.1 04/23/20 13:25: Sodium 136, Plasma Sodium 137, Potassium 3.8, Chloride 101, Carbon Dioxide 25.2, Anion Gap 13.6, BUN 16, Creatinine 1.33, Est GFR (Non-Af Amer) 41 L D, BUN/Creatinine Ratio 12.0, Random Glucose 136 H, Calcium 9.2, Calcium Adj for Albumin 9.7, Total Bilirubin 0.6, AST 14, ALT 16 L, Alkaline Victoriano sphatase 52, Total Protein 6.9, Albumin 3.0 L 04/24/20 06:50: WBC 8.8, RBC 3.89 L, Hgb 11.6 L, Hct 36.8 L, MCV 94.6, MCH 29.8, MCHC 31.5 L, RDW 13.8, Plt Count 172, MPV 8.9, Immature Gran % (Auto) 1.00 H, Immature Gran # (Auto) 0.09 H, Neutrophils % 67.6, Lymphocytes % 19.3 L, Monocytes % 8.0, Eosinophils % 3.6 H, Basophils % 0.5, Nucleated RBC % 0.0, Neutrophils # 6.0, Lymphocytes # 1.70, Monocytes # 0.7, Eosinophils # 0.3, Absolute Basophils 0.0 04/24/20 06:50: Sodium 138, Plasma Sodium 138, Potassium 4.2, Chloride 103, Carbon Dioxide 28.3, Anion Gap 10.9, BUN 17, Creatinine 1.25, Est GFR (Non-Af Amer) 44 L, BUN/Creatinine Ratio 13.6, Random Glucose 130 H, Calcium 9.9, Calcium Adj for Albumin 10.2, Total Bilirubin 0.7, AST 13, ALT 17 L, Alkaline Phosphatase 53, Total Protein 7.5, Albumin 3.2 L Discharge Location: Home Disposition: Home Health Service Home Health Agency: [facility] Home Health Condition: Good Face to Face Encounter completed per CMS Guidelines: Yes - For home health Discharge Activity: Activity as tolerated Discharge Diet: General/regular food Additional Patient Instructions (free text): See Dr. Sotelo in 2 weeks for follow-up. Prescriptions (Any new or edited meds): Cefdinir 300 mg PO DAILY #5 cap [facility] [place] Complete Home Medications List: Complete Home Medication List: Calcium Carb, Citrate/Vit D3 [Calcium + D3 ER Tablet] 1 ea PO DAILY 04/21/20 DULoxetine HCL [Cymbalta] 30 mg PO HS 04/21/20 Donepezil HCl [Aricept] 10 mg PO DAILY 04/21/20 Duloxetine HCl 60 mg PO DAILY 04/21/20 Furosemide [Lasix] 20 mg PO DAILY 04/21/20 Gabapentin 400 mg PO TID 04/21/20 Levothyroxine Sodium [Levoxyl] 25 mcg PO DAILY 04/21/20 Meloxicam [Mobic] 15 mg PO DAILY 04/21/20 Memantine HCl [Namenda] 10 mg PO BID 04/21/20 Omeprazole 40 mg PO DAILY 04/21/20 amLODIPine BESYLATE [Norvasc] 5 mg PO DAILY 04/21/20 traZODone HCL [Desyrel] 50 mg PO HS 04/21/20 Acetaminophen [Tylenol] 500 mg PO Q4H PRN tab 04/25/20 Cefdinir 300 mg PO DAILY #5 cap 04/25/20 Forms: Patient Portal Registration
[2020-04-25] MEDS: DONEPEZIL HCL 10 MG TABLET PO SCH (09:22)
[2020-04-25] MEDS: DULoxetine HCL 30 MG CAPSULE.SA PO SCH (09:22)
[2020-04-25] MEDS: MELOXICAM 15 MG TABLET PO SCH (09:23)
[2020-04-25] MEDS: amLODIPine BESYLATE 5 MG TABLET PO SCH (09:23)
[2020-04-25] MEDS: MEMANTINE HCL 10 MG TABLET PO SCH (09:23)
[2020-04-25] MEDS: GABAPENTIN 400 MG CAPSULE PO SCH ×2 (09:23→12:27)
[2020-04-25] MEDS: AZITHROMYCIN 250 MG TABLET PO SCH (09:28)
[2020-04-25 12:50] VITALS: BP 147/71
== END 2020-04-25 12:55 | disposition home health service (06) | DRG 177 ==
LOC: ER 14:06 → MS 19:16
PROVIDERS: ADMIT Family Medicine; ATTEND Family Medicine
DX: J12.89 Other viral pneumonia; G30.1 Alzheimer's disease with late onset; N18.32 Chronic kidney disease, stage 3b; F02.80 Dementia in other diseases classified elsewhere, unspecified severity, without behavioral disturbance, psychotic disturbance, mood disturbance, and anxiety; U07.1 COVID-19